=== PATIENT | female | born 1965 | race American Indian/Alaskan Native ===

== ENCOUNTER 2017-05-23 21:12 | Emergency (ER) | payer MEDICAID ==
[2017-05-23] MEDS ORDERED: TYLENOL PO ONE (22:03)
[2017-05-23] MEDS ORDERED: NACL 0.9% 1000 ML 1,000 ML IV ONE ×2 (22:03→22:05)
[2017-05-23] MEDS ORDERED: ZOSYN/NS 4.5GM/100ML 4.5 GM/100 ML VIAL IV ONE (22:03)
--- NOTE | 2017-05-23 22:10 | Emergency Department Report ---
ED General Adult HPI - General Chief complaint: Fever Stated complaint: ALTERED MENTAL STATUS Time Seen by Provider: 05/23/17 21:57 Source: patient, family, EMS Mode of arrival: Stretcher Limitations: No Limitations - History of Present Illness Initial comments: Patient is 52 years old female with history of hypertension and cervical cancer. Patient is following at [facility] was Dr. Jonah Duncan she is getting chemotherapy and radiation. Family stated that she starts having fever today and she became more confused. Patient denied cough, abdominal pain, urinary symptoms. Patient denied any chest pain or shortness of breath. - Related Data Allergies Allergy/AdvReac Type Severity Reaction Status Date / Time No Known Allergies Allergy Unverified 05/23/17 21:36 ED Review of Systems ROS: Stated complaint: ALTERED MENTAL STATUS Other details as noted in HPI Constitutional: chills, fever ENT: denies: ear pain, throat pain Respiratory: denies: cough, orthopnea, shortness of breath, SOB with exertion, SOB at rest Cardiovascular: denies: chest pain, palpitations, dyspnea on exertion, orthopnea Gastrointestinal: denies: abdominal pain, nausea, vomiting, diarrhea, constipation, hematemesis, melena, hematochezia Genitourinary: denies: urgency, dysuria, frequency, hematuria Neurological: confusion. denies: headache, weakness, numbness, paresthesias ED Past Medical Hx - Past Medical History Previous Medical History?: Yes Additional medical history: cervical cancer - Surgical History Past Surgical History?: No - Social History Smoking Status: Current Some Day Smoker Substance Use Type: None ED Physical Exam - General Limitations: No Limitations General appearance: alert, in no apparent distress - Head Head exam: Present: atraumatic, normocephalic, normal inspection - ENT ENT exam: Present: normal exam, mucous membranes dry - Neck Neck exam: Present: normal inspection, full ROM. Absent: tenderness, meningismus, lymphadenopathy, thyromegaly - Respiratory Respiratory exam: Present: normal lung sounds bilaterally. Absent: respiratory distress, wheezes, rales, rhonchi, stridor, chest wall tenderness, accessory muscle use, decreased breath sounds, prolonged expiratory - Cardiovascular Cardiovascular Exam: Present: regular rate, normal rhythm, normal heart sounds - GI/Abdominal GI/Abdominal exam: Present: soft, normal bowel sounds. Absent: distended, tenderness, guarding, rebound, rigid, organomegaly, mass, bruit, pulsatile mass , hernia - Extremities Exam Extremities exam: Present: normal inspection, full ROM, normal capillary refill. Absent: tenderness, pedal edema, joint swelling, calf tenderness - Back Exam Back exam: Present: normal inspection, full ROM. Absent: CVA tenderness (R), CVA tenderness (L), muscle spasm, paraspinal tenderness, vertebral tenderness - Neurological Exam Neurological exam: Present: alert, oriented X3, CN II-XII intact, normal gait - Skin Skin exam: Present: warm, dry, intact ED Course Vital Signs 05/23/17 05/23/17 05/23/17 21:36 22:00 22:30 Temperature 99.4 F Pulse Rate 83 84 77 Respiratory 25 H 20 25 H Rate Blood Pressure 129/70 129/70 115/68 Blood Pressure 129/70 [Left] O2 Sat by Pulse 99 99 97 Oximetry 05/23/17 05/23/17 05/24/17 22:46 23:00 00:00 Temperature Pulse Rate 80 79 83 Respiratory 15 25 H 10 L Rate Blood Pressure 115/68 127/75 101/68 Blood Pressure [Left] O2 Sat by Pulse 99 96 96 Oximetry ED Medical Decision Making - Lab Data Result diagrams: 05/23/17 22:57 05/23/17 22:58 - EKG Data -: EKG Interpreted by Pr EKG shows normal: sinus rhythm Rate: normal - EKG Data Interpretation: no acute changes - Radiology Data Radiology results: report reviewed Referring Physician: SAADIA POTTER Patient Name: JE SOLIS Date of : 1965 Sex: Female Report Date: 2017-05-23 Report Status: Finalized Findings [facility] [address] [place] [address] Cat Scan Report Signed Patient: JE SOLIS MR#: [id number] : 1965 Acct:[id number] Age/Sex: 52 / F ADM Date: 05/23/17 Loc: ED Attending Dr: Ordering Physician: SAADIA POTTER Date of Service: 05/23/17 Procedure(s): CT head/brain wo con Accession Number(s): [id number] cc: SAADIA POTTER FINAL REPORT PROCEDURE: CT HEAD/BRAIN WO CON TECHNIQUE: Computerized tomography of the head was performed without contrast material. HISTORY: AMS. CERVICAL CA,ON CHEMO COMPARISON: No prior studies are available for comparison. FINDINGS: Skull and scalp: Normal. Paranasal sinuses: Normal. Ventricles and subarachnoid spaces: Normal. Cerebrum: No evidence of hemorrhage, acute infarction or mass . Cerebellum and brainstem: No evidence of hemorrhage, acute infarction or mass. Vasculature: Normal. Comments: None. IMPRESSION: Normal Examination Transcribed By: [facility] Dictated By: COSME ANDRADE Electronically Authenticated By: COSME ANDRADE Signed Date/Time: 05/23/171832 DD/ 32 TD/TT: 05/23/171832 Referring Physician: SAADIA POTTER Patient Name: JE SOLIS Date of : 1965 Sex: Female Report Date: 2017-05-23 Report Status: Finalized Findings [address] [address] XRay Report Signed Patient: JE SOLIS MR#: [id number] : 1965 Acct:[id number] Age/Sex: 52 / F ADM Date: 05/23/17 Loc: ED Attending Dr: Ordering Physician: SAADIA POTTER Date of Service: 05/23/17 Procedure(s): XR chest 1V ap Accession Number(s): [id number] cc: SAADIA POTTER Fluoro Time In Minutes: FINAL REPORT PROCEDURE: XR CHEST 1V AP TECHNIQUE: Chest radiograph anteroposterior view. CPT 34933 HISTORY: Fever/Sepsis COMPARISON: No prior studies are available for comparison. FINDINGS: Heart: Normal. Mediastinum/Vessels: Normal. Lungs/Pleural space: Normal. Bony thorax: No acute osseous abnormality. Life support devices: None. IMPRESSION: No acute cardiopulmonary abnormality. Transcribed By: [facility] Dictated By: COSME ANDRADE Electronically Authenticated By: COSME ANDRADE Signed Date/Time: 05/23/171908 DD/ 08 TD/TT: 05/23/171908 - Medical Decision Making discuss with Dr Younger from [facility] , she accepted patient transfer. Dr Lozada [facility] accepted patient transfer to [facility]. Critical Care Time: Yes Critical care time in (mins) excluding proc time.: 30 Critical care attestation.: If time is entered above; I have spent that time in minutes in the direct care of this critically ill patient, excluding procedure time. ED Disposition Clinical Impression: Fever, UTI (urinary tract infection), Febrile neutropenia Disposition: DC/TX-70 ANOTHER TYPE HLTHCARE Is pt being admited?: No Condition: Stable Referrals: TRICE BYRNE MD [Primary Care Provider] - 3-5 Days
--- NOTE | 2017-05-23 22:36 | Cat Scan Report ---
FINAL REPORT PROCEDURE: CT HEAD/BRAIN WO CON TECHNIQUE: Computerized tomography of the head was performed without contrast material. HISTORY: AMS. CERVICAL CA,ON CHEMO COMPARISON: No prior studies are available for comparison. FINDINGS: Skull and scalp: Normal. Paranasal sinuses: Normal. Ventricles and subarachnoid spaces: Normal. Cerebrum: No evidence of hemorrhage, acute infarction or mass . Cerebellum and brainstem: No evidence of hemorrhage, acute infarction or mass. Vasculature: Normal. Comments: None. IMPRESSION: Normal Examination
--- NOTE | 2017-05-23 23:11 | XRay Report ---
FINAL REPORT PROCEDURE: XR CHEST 1V AP TECHNIQUE: Chest radiograph anteroposterior view. CPT 53940 HISTORY: Fever/Sepsis COMPARISON: No prior studies are available for comparison. FINDINGS: Heart: Normal. Mediastinum/Vessels: Normal. Lungs/Pleural space: Normal. Bony thorax: No acute osseous abnormality. Life support devices: None. IMPRESSION: No acute cardiopulmonary abnormality.
[2017-05-23 23:18] LABS: Hematocrit 30.9 % (30.3-42.9); Hemoglobin 10.5 gm/dl (10.1-14.3); Mean Corpuscular HGB Conc 34 % (30-34); Mean Corpuscular Hemoglobin 28 pg (28-32); Mean Corpuscular Volume 83 fl (79-97); Red Blood Count 3.74 M/mm3 (3.65-5.03); Red Cell Distribution Width 16.2 % (13.2-15.2)
[2017-05-23 23:23] LABS: Platelet Count 40 K/mm3 (140-440)
[2017-05-23 23:35] LABS: Alanine Aminotransferase 17 units/L (7-56); Albumin 3.2 g/dL (3.9-5); BUN/Creatinine Ratio 23; Blood Urea Nitrogen 18 mg/dL (7-17); Calcium 8.6 mg/dL (8.4-10.2); Hemolysis Index 4
[2017-05-23 23:47] LABS: Bacteria,Urine 2+ /HPF (Negative); Bilirubin,Urine NEG (Negative); Blood,Urine MOD (Negative); Color,Urine Yellow (Yellow); Mucus,Urine FEW /HPF; Nitrite,Urine POS (Negative); Protein,Urine <15 mg/dL mg/dL (Negative); Urobilinogen,Urine < 2.0 mg/dL (<2.0)
[2017-05-23 23:48] LABS: WBC,Urine > 182.0 /HPF (0.0-6.0)
[2017-05-24 00:40] VITALS: BP 101/68
[2017-05-24 01:11] LABS: Band Neutrophils # (Manual) 0.1 K/mm3; Basophils % (Manual) 0 % (0.0-1.8); Total Cells Counted 100
[2017-05-24 01:12] LABS: Anisocytosis 1+; Platelet Estimate Appears Decreased
== END 2017-05-24 03:49 | disposition other institution (70) ==
LOC: ED 21:12
DX: N39.0 Urinary tract infection, site not specified (principal); D70.9 Neutropenia, unspecified; F17.200 Nicotine dependence, unspecified, uncomplicated
CPT/HCPCS: 36415; 70450; 71045; 80053; 81001; 82140; 84484; 85007; 85025; 87040; 87076; 87186; 93005; 93010; 96361; 96365; 99291; J2543; J7030